=== PATIENT | female | born 1990 | race Caucasian/White ===

== ENCOUNTER 2017-06-08 17:03 | Emergency (ER) | payer OTHER ==
[2017-06-08 17:11] VITALS: BP 116/80
--- NOTE | 2017-06-08 17:32 | UC ---
Complaint Female HPI - HPI Summary HPI Summary: pain with voiding no fevers, chills or back pain - History Of Current Complaint Chief Complaint: UCGU Stated Complaint: UTI Time Seen by Provider: 06/08/17 17:30 Hx Obtained From: Patient Hx Last Menstrual Period: 04/08 ?: No Onset/Duration: Gradual Onset, Lasting Days, Still Present Timing: Constant Severity Initially: Mild Severity Currently: Mild Character: Burning, Colicy Aggravating Factor(s): Urination Alleviating Factor(s): Nothing Associated Signs And Symptoms: Positive: Negative - Allergies/Home Medications Allergies/Adverse Reactions: Allergies Allergy/AdvReac Type Severity Reaction Status Date / Time No Known Allergies Allergy Verified 04/27/15 12:26 PMH/Surg Hx/FS Hx/Imm Hx Previously Healthy: Yes - Surgical History Surgical History: Yes Surgery Procedure, Year, and Place: wisdom teeth extraction - Family History Known Family History: Positive: None - Social History Occupation: Employed Full-time Lives: With Family Alcohol Use: Occasionally Substance Use Type: None Smoking Status (MU): Light Every Day Tobacco Smoker Type: Cigarettes Amount Used/How Often: 7 cigarettes Review of Systems Constitutional: Negative Skin: Negative Eyes: Negative ENT: Negative Respiratory: Negative Cardiovascular: Negative Gastrointestinal: Negative Genitourinary: Negative, Dysuria, Frequency, Urgency Motor: Negative Neurovascular: Negative Musculoskeletal: Negative Neurological: Negative Psychological: Negative All Other Systems Reviewed And Are Negative: Yes Physical Exam Triage Information Reviewed: Yes Appearance: Well-Appearing, No Pain Distress, Well-Nourished Vital Signs: Initial Vital Signs Temp 97.3 F 06/08/17 17:08 Pulse 92 06/08/17 17:08 Resp 18 06/08/17 17:08 BP 116/80 06/08/17 17:08 Pulse Ox 99 06/08/17 17:08 Vital Signs Reviewed: Yes Eye Exam: Normal Eyes: Positive: Conjunctiva Clear ENT Exam: Normal ENT: Positive: Normal ENT inspection, Hearing grossly normal, Pharynx normal. Negative: Nasal congestion, Nasal drainage, Trismus, Muffled/hoarse voice Dental Exam: Normal Neck exam: Normal Neck: Positive: Supple, Nontender Respiratory Exam: Normal Respiratory: Positive: Chest non-tender, No respiratory distress, No accessory muscle use Cardiovascular Exam: Normal Cardiovascular: Positive: RRR, Pulses Normal, Brisk Capillary Refill Abdominal Exam: Normal Abdomen Description: Positive: Nontender, No Organomegaly, Soft. Negative: CVA Tenderness (R), CVA Tenderness (L) Bowel Sounds: Positive: Present Musculoskeletal Exam: Normal Musculoskeletal: Positive: Strength Intact, ROM Intact Neurological Exam: Normal Neurological: Positive: Alert Psychological Exam: Normal Psychological: Positive: Normal Response To Family Skin Exam: Normal Diagnostics - Laboratory Diagnostic Studies Completed/Ordered: Urine + for leukoesterace, blood, ketones Complaint Female Dx - Course Course Of Treatment: urine, increae fluids,macrobid BID, follow with pcp - Differential Dx/Diagnosis Differential Diagnosis/HQI/PQRI: , Renal Colic, Sexually Transmitted Disease, Urinary Tract Infection Provider Diagnoses: UTI Discharge - Discharge Plan Condition: Stable Disposition: HOME Prescriptions: Nitrofurantoin Monohyd Macro [Macrobid] 100 mg PO BID #20 cap Phenazopyridine TAB* [Pyridium 100 mg TAB*] 100 mg PO TID #6 tab Patient Education Materials: Phenazopyridine (By mouth), Urinary Tract Infection in Women (ED) Referrals: [facility] [place] [facility]IAN REFERRAL [Outside] - If Needed
== END 2017-06-08 17:40 | disposition home or self-care (01) ==
LOC: UCEAST 17:03
DX: N39.0 Urinary tract infection, site not specified (principal); B96.20 Unspecified Escherichia coli [E. coli] as the cause of diseases classified elsewhere; Z32.02 Encounter for pregnancy test, result negative; F17.210 Nicotine dependence, cigarettes, uncomplicated
CPT/HCPCS: 81003; 84702; 87077; 87086; 87186; 99212; G0463

== ENCOUNTER 2017-08-10 04:56 | Emergency (ER) | payer OTHER ==
[2017-08-10] MEDS ORDERED: Dexamethasone IV* 4 MG/ML 1 ML (4 MG) IV SLOW PU ONE (07:05)
[2017-08-10] MEDS ORDERED: diPHENhydraMINE IV* 50 MG/ML 1 ml VIAL (BENADRYL) IV ONE (07:05)
[2017-08-10] MEDS ORDERED: oxyCODONE/Acetamin 5/325 MG* TAB PO ONE (07:05)
[2017-08-10] MEDS ORDERED: Ondansetron INJ* 2 MG/ML VIAL IV ONE (07:05)
[2017-08-10] MEDS ORDERED: Metoclopramide IV* 5 MG/ML 2 ML VIAL IV ONE (07:05)
[2017-08-10] MEDS ORDERED: NS 0.9% 1000 ML* 1,000 ML IV ONE (07:08)
--- NOTE | 2017-08-10 08:13 | ED ---
Headache - HPI Summary HPI Summary: 27F no pmh pw 2 days generalized headache accompanied by nausea ,no prior episodes .Worse with cough and bending over. No visual changes, neck stiffness, or fever. - History Of Current Complaint Chief Complaint: EDHeadache Stated Complaint: HEADACHE/VOMITING Time Seen by Provider: 08/10/17 06:59 Hx Last Menstrual Period: 04/08 - Risk Factors SAH Risk Factors: Negative Meningitis Risk Factors: Negative SDH Risk Factors: Negative Temporal Arteritis Risk Factors: Negative - Allergies/Home Medications Allergies/Adverse Reactions: Allergies Allergy/AdvReac Type Severity Reaction Status Date / Time No Known Allergies Allergy Verified 04/27/15 12:26 PMH/Surg Hx/FS Hx/Imm Hx Previously Healthy: Yes Endocrine/Hematology History: Denies: Hx Diabetes, Hx Thyroid Disease Cardiovascular History: Denies: Hx Hypertension Respiratory History: Denies: Hx Asthma, Hx Chronic Obstructive Pulmonary Disease (COPD) GI History: Denies: Hx Ulcer - Surgical History Surgery Procedure, Year, and Place: wisdom teeth extraction Infectious Disease History: No Infectious Disease History: Denies: Hx Hepatitis, Hx Human Immunodeficiency Virus (HIV), Traveled Outside the in Last 30 Days - Family History Known Family History: Positive: None - Social History Alcohol Use: Occasionally Substance Use Type: Reports: None Smoking Status (MU): Light Every Day Tobacco Smoker Type: Cigarettes Amount Used/How Often: 7 cigarettes Review of Systems Constitutional: Negative Eyes: Negative ENT: Negative Cardiovascular: Negative Respiratory: Negative Gastrointestinal: Negative Musculoskeletal: Negative Neurological: Other - headache generalized All Other Systems Reviewed And Are Negative: Yes Physical Exam - Summary Physical Exam Summary: alert and oriented Vital Signs On Initial Exam: Initial Vitals Temp Pulse Resp BP Pulse Ox 36.1 C 89 20 139/94 97 08/10/17 04:58 08/10/17 04:58 08/10/17 04:58 08/10/17 04:58 08/10/17 04:58 Appearance: Positive: Well-Appearing Skin: Positive: Warm Head/Face: Positive: Normal Head/Face Inspection Eyes: Positive: Normal Neck: Positive: Supple, Nontender, Other: - negative kernigs and brudzinski signs Respiratory/Lung Sounds: Positive: Clear to Auscultation, Breath Sounds Present Cardiovascular: Positive: Normal, RRR, Pulses are Symmetrical in both Upper and Lower Extremities Abdomen Description: Positive: Nontender Musculoskeletal: Positive: Normal Neurological: Positive: Normal, Sensory/Motor Intact, Alert, Oriented to Person Place, Time, CN Intact II-III Diagnostics - Vital Signs Vital Signs Temp Pulse Resp BP Pulse Ox 08/10/17 07:30 65 99/61 97 08/10/17 07:01 77 100 08/10/17 07:00 95/56 08/10/17 06:30 96/57 08/10/17 06:29 68 97 08/10/17 06:00 72 104/57 97 08/10/17 05:30 78 119/79 96 08/10/17 05:24 82 98 08/10/17 05:22 124/89 08/10/17 04:58 36.1 C 89 20 139/94 97 - Laboratory Lab Statement: Any lab studies that have been ordered have been reviewed, and results considered in the medical decision making process. Headache Course/Dx - Diagnoses Provider Diagnoses: Headache Discharge - Discharge Plan Condition: Stable Disposition: OTHER Discharge Disposition Comment: pending imaging results, signed out to Dr Lainez
[2017-08-10 08:16] LABS: Hematocrit 37 % (35-47); Hemoglobin 12.5 g/dl (12.0-16.0); Mean Corpuscular HGB Conc 34 g/dl (31-36); Mean Corpuscular Hemoglobin 30 pg (27-31); Mean Corpuscular Volume 88 fL (80-97); Mean Platelet Volume 8 um3 (7.4-10.4); Red Blood Count 4.16 10^6/ul (4.0-5.4); Red Cell Distribution Width 13 % (10.5-15); White Blood Count 9.5 10^3/ul (3.5-10.8)
[2017-08-10 08:18] LABS: Urine Bilirubin Negative (Negative); Urine Glucose Negative (Negative); Urine Nitrite Negative (Negative)
[2017-08-10 08:21] LABS: Albumin 3.9 g/dL (3.2-5.2); BUN/Creatinine Ratio 16.7 (8-20); Calcium 8.7 mg/dL (8.6-10.3); EGFR African American 114.8 (>60); EGFR Non-African American 89.3 (>60); Potassium 4.6 mmol/L (3.5-5.0); Total Bilirubin 0.2 mg/dL (0.2-1.0); Total Protein 6.9 g/dL (6.4-8.9)
[2017-08-10] MEDS ORDERED: Iohexol 350* (CONTRAST) 500 ML MDV IV ONE (09:39)
--- NOTE | 2017-08-10 09:55 | RAD ---
Indication: Headache, vomiting. Comparison: No relevant prior exams available on the [facility] PACS for comparison. Technique: Noncontrast CT vertex of skull through foramen magnum. Report: The sulci, ventricles, and basal cisterns are normal for age. Dominguez matter white matter differentiation is preserved without evidence for edema. No intra or extra axial hemorrhage, mass, or fluid collection detected. Unremarkable visualized orbital contents. Unremarkable calvarium and skull base. Unremarkable scalp. The visualized paranasal sinuses and mastoid air spaces are clear. IMPRESSION: Negative unenhanced head CT.
[2017-08-10 10:02] VITALS: BP 121/69
--- NOTE | 2017-08-10 10:32 | RAD ---
INDICATION: Headache evaluate for aneurysm. COMPARISON: Comparison is made with prior CT of the brain of the same day. TECHNIQUE: A CT angiogram of the head and neck was performed following intravenous injection of 80 ml of Omnipaque 350 nonionic contrast. Contiguous axial sections were obtained from the thoracic inlet through the skull vertex. Images were reconstructed in the coronal and sagittal planes and in a 3-D volume rendered format. The distal cervical internal carotid artery diameter is used as the denominator for stenosis measurement. FINDINGS: RIGHT CAROTID: The right common and internal carotid arteries appear widely patent without evidence for narrowing or dissection. LEFT CAROTID: The left common and internal carotid arteries appear widely patent without evidence for narrowing or dissection. VERTEBRALS: The vertebral arteries are bilaterally symmetric and demonstrate homogeneous opacification of contrast. CTA BRAIN: The internal carotid, anterior and middle cerebral arteries appear patent without evidence for high-grade stenosis or occlusion. The vertebral, basilar and posterior cerebral arteries appear patent without evidence for high-grade stenosis or occlusion. No gross focal perfusion abnormalities are seen. No aneurysm or vascular malformation is seen. NECK: There are couple slightly prominent lymph nodes in the left internal jugular chain measuring up to 1.1 cm transverse dimension. No other enlarged lymph nodes are seen. The parotid, submandibular and thyroid glands appear within normal limits. The palatine tonsils appear slightly prominent on both sides. The lung apices appear clear. The sinuses are clear. IMPRESSION: 1. NO EVIDENCE FOR ANEURYSM. 2. MILDLY PROMINENT LYMPH NODES IN THE LEFT INTERNAL JUGULAR CHAIN, LIKELY INCIDENTAL, RECOMMEND CLINICAL CORRELATION. CPT II Codes: 3100F
--- NOTE | 2017-08-10 17:16 | ED ---
Gelacio Vicente Angela, scribed for Faisal Duarte MD on 08/10/17 at 0819 . Progress - Progress Note Progress Note: This pt is a 27 y/o female presenting to [facility] with 2 days of generalized headache accompanied by nausea. This pt was signed out from Dr. Garcia, pending disposition, awaiting CT brain and CTA. Physical Exam: VITAL SIGNS: Reviewed. GENERAL: Patient is a well-developed and nourished female who is lying comfortable in the stretcher. Patient is not in any acute respiratory distress. HEAD AND FACE: No signs of trauma. No ecchymosis, hematomas or skull depressions. No sinus tenderness. EYES: PERRLA, EOMI x 2, No injected conjunctiva, no nystagmus. EARS: Hearing grossly intact. Ear canals and tympanic membranes are within normal limits. MOUTH: Oropharynx within normal limits. NECK: Supple, trachea is midline, no adenopathy, no JVD, no carotid bruit, no c- spine tenderness, neck with full ROM. CHEST: Symmetric, no tenderness at palpation LUNGS: Clear to auscultation bilaterally. No wheezing or crackles. CVS: Regular rate and rhythm, S1 and S2 present, no murmurs or gallops appreciated. ABDOMEN: Soft, non-tender. No signs of distention. No rebound no guarding, and no masses palpated. Bowel sounds are normal. EXTREMITIES: FROM in all major joints, no edema, no cyanosis or clubbing. NEURO: Alert and oriented x 3. No acute neurological deficits. Speech is normal and follows commands. SKIN: Dry and warm The pt will be discharged to home in stable condition with a diagnosis of headache. - Results/Orders Results/Orders: CTA head/neck, per radiologist: IMPRESSION: 1. No evidence for aneurysm. 2. Mildly prominent lymph nodes in the left internal jugular chain, likely incidental. Recommend clinical correlation. ED physician has reviewed this radiology report and agrees. Brain CT, per radiologist: IMPRESSION: Negative unenhanced head CT. ED physician has reviewed this radiology report and agrees. Re-Evaluation - Re-Evaluation First Eval Re-Evaluation Time: 08:17 Comment: Pt reports she is feeling a little better but feels sleepy. She states she has family court in [place] at 10:30 today. Pt will call to see if she can stay longer in the ED. Course/Dx - Course Course Of Treatment: This pt is a 27 y/o female presenting to [facility] with 2 days of generalized headache accompanied by nausea. This pt was signed out by Dr. Garcia to follow up on head CT and CTA he ordered for pts migraine headache. CTA head shows 1. No evidence for aneurysm. 2. Mildly prominent lymph nodes in the left internal jugular chain, likely incidental. Recommend clinical correlation. CT Brain reveals negative unenhanced head CT. Pt received Decadron, Reglan, Benadryl, Percocet and IV fluids. After the pt received all these medications her symptoms resolved. At this point pain is currently 0/10 in severity. On re- evaluation the neurological exam is normal. Since the Head CT and CTA are within normal limits, pt will be discharged home with follow up from PCP. Pt is hemodynamically stable, alert and oriented x3, with no acute neurological deficits. - Diagnoses Provider Diagnoses: Headache The documentation as recorded by the Gelacio lugo Angela accurately reflects the service I personally performed and the decisions made by Gerald hamm Walter, MD.
== END 2017-08-10 11:15 ==
LOC: ED 04:56
DX: R51 Headache (principal); F17.210 Nicotine dependence, cigarettes, uncomplicated
CPT/HCPCS: 36415; 70450; 70496; 70498; 80053; 81003; 84702; 85025; 96374; 96375; 99284; A9270-GY; J1100; J1200; J2405; J2765; Q9967

== ENCOUNTER 2019-01-09 18:44 | Emergency (ER) | payer OTHER ==
[2019-01-09 19:47] VITALS: BP 122/85
--- NOTE | 2019-01-09 20:41 | UC ---
Dental HPI - HPI Summary HPI Summary: 28 year old female presents with 3 day history of dental pain to her left lower molar. States feels like constant ache. Has worsened over the last 3 days. No dentist appoint. She also complains of onset of URI symptoms today including malaise, fatigue, nasal congestion, sore throat, and occasional non-productive cough. - History of Current Complaint Chief Complaint: UCRespiratory Stated Complaint: DENTAL COMPLAINT Time Seen by Provider: 01/09/19 20:38 Hx Obtained From: Patient Hx Last Menstrual Period: [id number] Pain Intensity: 5 - Allergies/Home Medications Allergies/Adverse Reactions: Allergies Allergy/AdvReac Type Severity Reaction Status Date / Time No Known Allergies Allergy Verified 01/09/19 19:46 Home Medications: Home Medications Ibuprofen TAB* [Motrin TAB* 600 MG] 600 mg PO Q6H PRN 01/09/19 [History Confirmed 01/09/19] PMH/Surg Hx/FS Hx/Imm Hx Previously Healthy: Yes - Denies significant PMH - Surgical History Surgical History: Yes Surgery Procedure, Year, and Place: wisdom teeth extraction, c-sec X1 - Family History Known Family History: Positive: None - Social History Alcohol Use: Weekly Substance Use Type: None Smoking Status (MU): Light Every Day Tobacco Smoker Type: Cigarettes Amount Used/How Often: 7 cigarettes Household Exposure Type: Cigarettes Review of Systems All Other Systems Reviewed And Are Negative: Yes Constitutional: Negative: Fever, Chills Eyes: Negative: Drainage, Eye Redness ENT: Positive: Sore Throat, Nasal Discharge, Sinus Congestion. Negative: Ear Ache, Sinus Pain/Tenderness Respiratory: Positive: Cough. Negative: Shortness Of Breath Cardiovascular: Negative: Palpitations, Chest Pain Gastrointestinal: Negative: Abdominal Pain, Vomiting, Diarrhea, Nausea Genitourinary: Positive: Negative Musculoskeletal: Positive: Negative Neurological: Positive: Negative Is Patient Immunocompromised?: No Physical Exam - Summary Physical Exam Summary: GENERAL APPEARANCE: Well developed, well nourished, alert and cooperative, and appears to be in no acute distress. HEAD: No facial swelling. EYES: Conjunctiva clear. No drainage. Vision is grossly intact. EARS: External auditory canals and tympanic membranes clear, hearing grossly intact. NOSE: Mild nasal congestion. No nasal discharge. THROAT: Mild pharyngeal erythema. No tonsilar inflammation, swelling, exudate, or lesions. Uvula midline. Dental decay to the left lower 2nd molar with mild gingival erythema without induration or fluctuance NECK: Neck supple, non-tender without lymphadenopathy. CARDIAC: Normal S1 and S2. No S3, S4 or murmurs. Rhythm is regular. There is no peripheral edema, cyanosis or pallor. Extremities are warm and well perfused. Capillary refill is less than 2 seconds. Peripheral pulses intact. LUNGS: Clear to auscultation without rales, rhonchi, wheezing or diminished breath sounds. ABDOMEN: Positive bowel sounds. Soft, nondistended, nontender. No guarding or rebound. No masses or hepatosplenomegally. MUSKULOSKELETAL: ROM intact to all extremities. No joint erythema or tenderness. Normal muscular development. Normal gait. SKIN: Skin normal color, texture and turgor with no lesions or eruptions. Triage Information Reviewed: Yes Vital Signs: Initial Vital Signs Temp 99.0 F 01/09/19 19:39 Pulse 108 01/09/19 19:39 Resp 16 01/09/19 19:39 BP 122/85 01/09/19 19:39 Pulse Ox 99 01/09/19 19:39 Vital Signs Reviewed: Yes Dental Complaint Course/Dx - Course Course Of Treatment: 28 year old female presents with 3 day history of dental pain to her left lower molar. States feels like constant ache. Has worsened over the last 3 days. No dentist appoint. She also complains of onset of URI symptoms today including malaise, fatigue, nasal congestion, sore throat, and occasional non-productive cough. Afebrile. VSS. Exam reveals adult female in no acute distress with dental decay to her left lower 2nd molar with mild gingival erythema without induration or fluctuance, mild nasal congestion, mild pharyngeal erythema without tonsilar edema or exudate, and otherwise unremarkable exam. Will start patient on Augmentin 875 mg BID x 10 days for dental infection and recommend symptomatic treatment for viral URI. She is to make an appointment with dentist at next available and return here or follow up with PCP in 7 days of URI symptoms do not improve. Anticipatory guidance and warning symptoms reviewed with patient. Verbalizes understanding and agrees with POC. - Differential Dx/Diagnosis Differential Diagnosis/Dx: Dental Abscess, Dental Caries, Fractured Tooth, Odontogenic Pain, Peridontic Disease Provider Diagnosis: Pain, dental, URI, acute Discharge - Sign-Out/Discharge Documenting (check all that apply): Patient Departure All imaging exams completed and their final reports reviewed: No Studies - Discharge Plan Condition: Stable Disposition: HOME Prescriptions: Amoxicillin/Clavulanate TAB* [Augmentin TAB 875*] 875 mg PO BID #20 tab Patient Education Materials: Upper Respiratory Infection (ED), Toothache (ED) Referrals: No Primary Care Phys,NOPCP [Primary Care Provider] - Additional Instructions: Start Augmentin 875 mg 1 tab twice a day for 10 days to treat for a possible dental infection. Take ibuprofen (Advil, Motrin) 600 mg every 8 hours as needed for pain. Be sure to rinse your mouth out with a warm salt water solution after every time you eat to remove any debris. Make an appointment with your dentist at next available appointment. You other symptoms are consistent with a viral upper respiratory infection. Viral infections do not respond to antibiotics and are limited to the treatment of symptoms. Viral infections typically run their course in 7-10 days. Drink plenty of fluids. Use an over the counter decongestant such as Sudafed according to directions for the congestion. Take over the counter acetaminophen (Tylenol) or ibuprofen (Advil, Motrin) according to directions as needed for pain or fever. Use salt water gargles several times a day if you have a sore throat. You may also use Chloraseptic spray or Cepacol lonzenges according to directions which contain a numbing medication and can provide some temporary relief from your sore throat. Use an over the counter cough suppressant such as Robitussin DM for the cough. Follow up with your primary care provider in 7 days if symptoms persist. Seek immediate medical attention in the emergency room if you develop fever greater than 100.5 F, you are unable to open of close your mouth, are unable to swallow, have difficulty breathing, or any worsening of symptoms. - Billing Disposition and Condition Condition: STABLE Disposition: Home
[2019-01-09] MEDS ORDERED: Amoxicillin/Clavulanate TAB* 875 MG PO ONE (21:07)
== END 2019-01-09 21:15 | disposition home or self-care (01) ==
LOC: UCEAST 18:44
DX: K08.89 Other specified disorders of teeth and supporting structures (principal); J06.9 Acute upper respiratory infection, unspecified; F17.210 Nicotine dependence, cigarettes, uncomplicated
CPT/HCPCS: 99212; A9270-GY; G0463